=== PATIENT | female | born 1970 | race African-American/Black ===

== ENCOUNTER 2016-11-04 17:46 | Emergency (ER) | payer OTHER ==
[2016-11-04 17:52] VITALS: BP 135/89; PULSE 71; TEMP 98.1; BMI 39.5
[2016-11-04] MEDS ORDERED: KETOROLAC TROMETHAMINE 30 MG/1 ML VIAL IVPUSH ONE (18:20)
[2016-11-04] MEDS ORDERED: KETOROLAC TROMETHAMINE 30 MG/1 ML VIAL ONE (18:40)
--- NOTE | 2016-11-04 18:45 | PDOC ---
History of Present Illness - General Chief Complaint: Chest Pain Stated Complaint: CHEST PAIN Time Seen by Provider: 11/04/16 17:49 History Source: Patient Exam Limitations: No Limitations - History of Present Illness Initial Comments: 11/04/16 18:40 The patient is a 46F with a PMH of GERD, obesity, and migraines who presents with 9 hours of CP. The pain started in her L arm when she was driving and had her arm up on the window and then felt sharp pain in her L chest. This was not associated with exertion. She felt shortness of breath throughout the day secondary to what she thinks is anxiety. The pain in her chest got better throughout the day but the numbness and tingling in her L arm has progressed. She currently is only experiencing L arm pain and a burning sensation substernally. Past History - Past Medical History Allergies/Adverse Reactions: Allergies Allergy/AdvReac Type Severity Reaction Status Date / Time morphine Allergy Intermediate Itching Verified 11/04/16 17:52 Sulfa (Sulfonamide Allergy Verified 11/04/16 17:52 Antibiotics) Home Medications: Ambulatory Orders NK [No Known Home Medication] 11/04/16 Diabetes: Yes (borderline diabetes) Hypercholesterolemia: Yes Thyroid Disease: Yes (borderline thyroid function) - Immunization History Td Vaccination: No - Psycho/Social/Smoking Cessation Hx Anxiety: No Suicidal Ideation: No Smoking Status: No Smoking History: Never smoked Number of Cigarettes Smoked Daily: 0 Hx Alcohol Use: No Drug/Substance Use Hx: No Substance Use Type: None Review of Systems - Review of Systems Able to Perform ROS?: Yes Is the patient limited Welsh proficient: No Constitutional: No: Chills, Fever HEENTM: No: Blurred Vision Respiratory: No: Cough, Shortness of Breath, Wheezing Cardiac (ROS): No: Chest Pain, Irregular Heart Rate, Lightheadedness, Palpitations, Syncope, Chest Tightness ABD/GI: No: Constipated, Diarrhea, Nausea, Vomiting : No: Burning, Dysuria, Discharge Musculoskeletal: Yes: Back Pain (chronic) Neurological: Yes: Numbness, Tingling (chronic in L leg, new in L arm). No: Headache *Physical Exam - Vital Signs Last Vital Signs Temp Pulse Resp BP Pulse Ox 98.1 F 71 16 135/89 97 11/04/16 17:46 11/04/16 17:46 11/04/16 17:46 11/04/16 17:46 11/04/16 17:46 - Physical Exam General Appearance: Yes: Nourished, Appropriately Dressed, Obese. No: Apparent Distress HEENT: positive: Normal Voice, Hearing Grossly Normal Respiratory/Chest: positive: Chest Tender (on sternum and L chest), Lungs Clear , Normal Breath Sounds. negative: Accessory Muscle Use, Labored Respiration, Crackles, Rales, Rhonchi, Stridor, Wheezing Cardiovascular: positive: Regular Rhythm, Regular Rate, S1, S2. negative: Bradycardia, Tachycardia, Diastolic Murmur, Systolic Murmur Gastrointestinal/Abdominal: positive: Normal Bowel Sounds, Flat, Soft. negative : Tender, Distended, Guarding, Rebound, Tenderness Extremity: negative: Normal Range of Motion (decreased ROM in L shoulder; neurovascularly intact in L arm), Swelling, Calf Tenderness Integumentary: positive: Normal Color, Dry, Warm. negative: Clammy, Swelling, Ecchymosis Neurologic: positive: Fully Oriented, Alert, Normal Mood/Affect, Normal Response , Motor Strength 5/5. negative: Sensory Deficit Heart Score/ECG Review - ECG Intrepretation Rhythm: Regular Rhythm - Treynor Treynor: Normal - ECG Impressions Normal ECG: Yes ED Treatment Course - LABORATORY CBC & Chemistry Diagram: 11/04/16 18:20 11/04/16 18:20 - RADIOLOGY Radiology Studies Ordered: Category Date Time Status CHEST PA & LAT [RAD] Stat Radiology 11/04/16 18:20 Ordered Medical Decision Making - Medical Decision Making 11/04/16 18:46 The patient is a 46F wih a PMH of GERD, obesity, and prediabetes who presents with 10 hours of CP. I have low suspicion for cardiac related CP. I have a higher suspicion for MSK related L arm pain which radiates to her chest and/or chest wall pain. I have ordered labs and imaging and will reassess when these return. 11/04/16 19:32 Patient signed out to night team. *DC/Admit/Observation/Transfer Diagnosis at time of Disposition: Atypical chest pain - Discharge Dispostion Disposition: HOME Condition at time of disposition: Stable - Patient Instructions Printed Discharge Instructions: DI for Atypical Chest Pain Additional Instructions: Your workup at this point was negative for any cardiac causes of your chest discomfort. Your cardiogram was normal and your cardiac enzymes were negative. It is important that you follow-up with your primary care doctor and probably a head porter as well if you have continued episodes of the chest pain/ discomfort. Tylenol or Motrin as needed for pain. Return to the emergency department immediately with ANY new, persistent or worsening symptoms. Continue any medications as previously prescribed by your physician. You should follow up with your primary doctor as soon as possible regarding today's emergency department visit. . Please make sure your doctor reviews the results of your emergency evaluation. Thank you for coming to the Emergency Department today for your care. It was a pleasure to see you today. Please note that your evaluation is INCOMPLETE until you follow-up with your doctor.
[2016-11-04 18:55] LABS: BASOPHIL 1.2 % (0-2.0); EOSINOPHIL 1.4 % (0-4.5); MCH 30.6 pg (25.7-33.7); MCHC 33.9 g/dl (32.0-36.0); MEAN CELL VOLUME 90.4 fl (80-96); NEUTROPHILS 39.8 % (42.8-82.8); PLATELET COUNT 270 K/MM3 (134-434); RDW 13.1 % (11.6-15.6); WHITE BLOOD COUNT 6.3 K/mm3 (4.0-10.8)
--- NOTE | 2016-11-04 19:07 | PDOC ---
Attending Attestation - Resident Resident Name: VinnybartNapoleon - ED Attending Attestation I have performed the following: I have examined & evaluated the patient, The case was reviewed & discussed with the resident, I agree w/resident's findings & plan, Exceptions are as noted - HPI HPI: 46 y/o chest pain 11/04/16 19:03 - Physicial Exam PE: pain left shoulder 11/04/16 19:04 - Medical Decision Making low probability for cardiac event some strong family history (on mother's side ) 11/04/16 19:04 11/04/16 19:06 Lab reports pending, patient endorsed to next shift MD Dr Silveira
[2016-11-04 19:09] LABS: ALK PHOS 73 U/L (32-92); ANION GAP 4 (8-16); BILIRUBIN,TOTAL 0.3 mg/dl (0.2-1.0); CALCIUM 9.2 mg/dl (8.4-10.2); CO2 27 mmol/L (22-28); CREATININE 0.9 mg/dl (0.6-1.3); GLUCOSE,RANDOM 93 mg/dl (74-106); SGOT/AST 17 U/L (10-42); SGPT/ALT 15 U/L (10-40); TOT PROT 7.3 g/dl (6.4-8.3)
[2016-11-04] MEDS ORDERED: MAG HYDROX/AL HYDROX/SIMETH 30 ML UNIT-DOSE CUP ONE (19:34)
[2016-11-04 19:35] LABS: TROPONIN I (DFP) < 0.03 ng/ml (0.03-0.50)
[2016-11-04] MEDS ORDERED: MAG HYDROX/AL HYDROX/SIMETH 30 ML UNIT-DOSE CUP PO ONE (19:36)
[2016-11-04 19:44] LABS: CPK 204 IU/L (26-192)
--- NOTE | 2016-11-04 19:50 | PDOC ---
*Physical Exam - Vital Signs Last Vital Signs Temp Pulse Resp BP Pulse Ox 98.1 F 71 16 135/89 97 11/04/16 17:46 11/04/16 17:46 11/04/16 17:46 11/04/16 17:46 11/04/16 17:46 ED Treatment Course - LABORATORY CBC & Chemistry Diagram: 11/04/16 18:20 11/04/16 18:20 - ADDITIONAL ORDERS Additional order review: Laboratory Results 11/04/16 11/04/16 18:40 18:20 Sodium 137 Potassium 3.9 Chloride 106 Carbon Dioxide 27 Anion Gap 4 L BUN 15 D Creatinine 0.9 Creat Clearance w eGFR > 60 Random Glucose 93 Calcium 9.2 Total Bilirubin 0.3 D AST 17 ALT 15 Alkaline Phosphatase 73 Creatine Kinase 204 H Troponin I < 0.03 L Total Protein 7.3 Albumin 4.0 11/04/16 18:20 RBC 4.29 MCV 90.4 MCHC 33.9 RDW 13.1 MPV 9.0 Neutrophils % 39.8 L Lymphocytes % 46.6 H Monocytes % 11.0 H Eosinophils % 1.4 D Basophils % 1.2 - Medications Given in the ED: ED Medications Discontinued Medications Generic Name Dose Route Start Last Admin Trade Name Freq PRN Reason Stop Dose Admin Al Hydroxide/Mg Hydroxide 30 ml 11/04/16 19:36 11/04/16 19:38 Mylanta Oral Suspension - PO 11/04/16 19:37 30 ml ONCE ONE Administration Ketorolac Tromethamine 30 mg 11/04/16 18:20 11/04/16 18:43 Toradol Injection - IVPUSH 11/04/16 18:21 30 mg ONCE ONE Administration Progress Note - Progress Note Progress Note: Care of this patient was transferred to [place] from Dr. Sibley at 7 PM. Patient is a 46-year-old female who comes in with approximately 9 hours of intermittent left shoulder pain radiating to her chest but no other associated symptoms. Patient heart score is 1 and she has a normal cardiogram, negative troponin, no risk factors. Patient's risk of an acute coronary event with a negative troponin that was done more than 6 hours after the onset of her chest pain and a heart score of 1.6 in less than 1% of having an acute coronary event within the next 3 months. Patient discharged will follow-up with her septic technician and primary care doctor. *DC/Admit/Observation/Transfer Diagnosis at time of Disposition: Atypical chest pain - Discharge Dispostion Disposition: HOME Admit: No - Patient Instructions Printed Discharge Instructions: DI for Atypical Chest Pain Additional Instructions: Your workup at this point was negative for any cardiac causes of your chest discomfort. Your cardiogram was normal and your cardiac enzymes were negative. It is important that you follow-up with your primary care doctor and probably a septic technician as well if you have continued episodes of the chest pain/ discomfort. Tylenol or Motrin as needed for pain. Return to the emergency department immediately with ANY new, persistent or worsening symptoms. Continue any medications as previously prescribed by your physician. You should follow up with your primary doctor as soon as possible regarding today's emergency department visit. . Please make sure your doctor reviews the results of your emergency evaluation. Thank you for coming to the Emergency Department today for your care. It was a pleasure to see you today. Please note that your evaluation is INCOMPLETE until you follow-up with your doctor.
--- NOTE | 2016-11-05 10:25 | EKG ---
Test Reason : Blood Pressure : / mmHG Vent. Rate : 071 BPM Atrial Rate : 071 BPM P-R Int : 154 ms QRS Dur : 080 ms QT Int : 374 ms P-R-T Axes : 042 030 -04 degrees QTc Int : 406 ms NORMAL SINUS RHYTHM NONSPECIFIC ST ABNORMALITY NO PREVIOUS ECGS AVAILABLE Confirmed by REANNA GARCIA MD ([id number]) on 11/05/2016 10:25:24 AM Referred By: DR AQUINO Confirmed By:REANNA GARCIA MD
--- NOTE | 2016-11-05 15:10 | PDOC ---
Attending Attestation - Resident Resident Name: VinnybartNapoleon - ED Attending Attestation I have performed the following: I have examined & evaluated the patient, The case was reviewed & discussed with the resident, I agree w/resident's findings & plan, Exceptions are as noted - HPI HPI: Patient refered by Dr Lira who informed us that he performed surgery on this patient few days prior and she reported to him that she experienced shortness of breath and leg numbness. Patient, walked in with metal furniture assembly supervisor, reported to us similar complaints stating that her asthma medication did not help her and the incentive spirometry either. 11/05/16 15:06 - Physicial Exam PE: Patient seen immediately from arrival, minimal distress, equal breath sounds, no leg cramps nor pains at my exam 11/05/16 15:09 - Medical Decision Making Work up for potential DVT and / or PE started , received early report, negative for DVT, patient endorsed to Dr Rahman at shift change 11/05/16 15:10
== END 2016-11-04 20:07 | disposition home or self-care (01) ==
LOC: FER 17:46
PROC: 3E0333Z Introduction of Anti-inflammatory into Peripheral Vein, Percutaneous Approach (ICD-10-PCS; principal; 2016-11-04)
DX: R07.89 Other chest pain (principal); E78.00 Pure hypercholesterolemia, unspecified
CPT/HCPCS: 36415; 71020-TC; 80053; 82553; 84484; 85025; 93005; 99283-25

== ENCOUNTER 2016-12-21 11:14 | Emergency (ER) | payer OTHER ==
[2016-12-21 11:20] VITALS: TEMP 98.4; BMI 39.5
[2016-12-21] MEDS ORDERED: KETOROLAC TROMETHAMINE 10 MG TABLET PO ONE (11:50)
--- NOTE | 2016-12-21 11:50 | PDOC ---
History of Present Illness <StephenstanislawleeSarita S - Last Filed: 12/21/16 16:29> - History of Present Illness Initial Comments: 12/21/16 11:58 46F with pmh of migraines and fibroids s/p hysterectomy presents with progressive onset upon waking up of bifrontal headache radiating to the back of her head, photophobia, no auras. Decribes it as more intense then her usual migraines (which usually have auras) and similar as her first migraine episode for which she had to go to the ER. Got her BP taken at nursing and saw it was in the 150's systolic. Neurologist recommended she goes to the ED She usually takes motrin and once every few months a shot of dexamethasone by her neurologist for prophylaxis. She is worried becuase she has 2x family history of subarachnoid aneurism rupture. Complains of some nausea. Took one motrin with minimal relief. No change in vision. 12/21/16 12:55 <Francis Hewitt - Last Filed: 12/21/16 16:30> - General Chief Complaint: Headache Stated Complaint: HEADACHE Time Seen by Provider: 12/21/16 11:16 Past History <ToñitoEly S - Last Filed: 12/21/16 16:29> - Past Medical History COPD: No Diabetes: Yes (borderline diabetes) Hypercholesterolemia: Yes Thyroid Disease: Yes (borderline thyroid function) Other medical history: MIGRAINE HEADACHES - Immunization History Td Vaccination: No - Suicide/Smoking/Psychosocial Hx Smoking Status: No Smoking History: Never smoked Have you smoked in the past 12 months: No Number of Cigarettes Smoked Daily: 0 Information on smoking cessation initiated: No Hx Alcohol Use: No Drug/Substance Use Hx: No Substance Use Type: None <Francis Hewitt - Last Filed: 12/21/16 16:30> - Past Medical History Allergies/Adverse Reactions: Allergies Allergy/AdvReac Type Severity Reaction Status Date / Time morphine Allergy Intermediate Itching Verified 12/21/16 11:15 shellfish derived Allergy Verified 12/21/16 11:15 Sulfa (Sulfonamide Allergy Verified 12/21/16 11:15 Antibiotics) Home Medications: Ambulatory Orders Cholecalciferol (Vitamin D3) [Vitamin D3 -] 5,000 unit PO DAILY 12/21/16 Docosahexanoic Acid/Epa [Fish Oil Concentrate Softgel] 1 each PO DAILY 12/21/16 Review of Systems - Review of Systems Able to Perform ROS?: Yes Is the patient limited Surinamese proficient: No Constitutional: No: Symptoms Reported HEENTM: No: Blurred Vision, Double Vision Respiratory: No: Symptoms reported Cardiac (ROS): No: Symptoms Reported ABD/GI: No: Symptoms Reported : No: Symptoms Reported Musculoskeletal: No: Symptoms Reported Integumentary: No: Symptoms Reported Neurological: Yes: See HPI All Other Systems: Reviewed and Negative <Francis Hewitt - Last Filed: 12/21/16 16:30> *Physical Exam - Vital Signs Last Vital Signs Temp Pulse Resp BP Pulse Ox 98.4 F 64 18 136/77 98 12/21/16 11:15 12/21/16 14:24 12/21/16 14:24 12/21/16 14:24 12/21/16 14:24 <Sarita Sibley S - Last Filed: 12/21/16 16:29> - Vital Signs Last Vital Signs Temp Pulse Resp BP Pulse Ox 98.4 F 69 18 142/84 97 12/21/16 11:15 12/21/16 11:15 12/21/16 11:15 12/21/16 11:15 12/21/16 11:15 - Physical Exam General Appearance: Yes: Appropriately Dressed, Mild Distress, Obese HEENT: positive: EOMI, DEYVI, Normal ENT Inspection, Normal Voice Neck: positive: Trachea midline. negative: Tender Respiratory/Chest: positive: Lungs Clear, Normal Breath Sounds. negative: Chest Tender, Respiratory Distress Cardiovascular: positive: Regular Rhythm, Regular Rate, S1, S2 <Francis Hewitt - Last Filed: 12/21/16 16:30> ED Treatment Course - LABORATORY CBC & Chemistry Diagram: 12/21/16 12:00 12/21/16 12:00 - ADDITIONAL ORDERS Additional order review: Laboratory Results 12/21/16 12:00 Sodium 137 Potassium 4.5 Chloride 105 Carbon Dioxide 26 Anion Gap 6 L BUN 13 Creatinine 0.9 Creat Clearance w eGFR > 60 Random Glucose 100 Calcium 10.1 Total Bilirubin 0.8 D AST 22 D ALT 21 D Alkaline Phosphatase 74 Total Protein 7.4 Albumin 4.1 12/21/16 12:00 RBC 4.54 MCV 91.5 MCHC 33.4 RDW 13.0 MPV 9.7 Neutrophils % 37.3 L Lymphocytes % 44.7 H Monocytes % 15.5 H Eosinophils % 0.9 Basophils % 1.6 - RADIOLOGY Radiology Studies Ordered: Category Date Time Status HEAD CT WITHOUT CONTRAST [CT] Stat CT Scan 12/21/16 11:22 Completed - Medications Given in the ED: ED Medications Discontinued Medications Generic Name Dose Route Start Last Admin Trade Name Nathaniel PRN Reason Stop Dose Admin Diphenhydramine HCl 25 mg 12/21/16 12:46 12/21/16 13:00 Benadryl Injection - IVPUSH 12/21/16 12:47 25 mg ONCE ONE Administration Ondansetron HCl 4 mg 12/21/16 12:46 12/21/16 12:50 Zofran Injection IVPUSH 12/21/16 12:47 4 mg ONCE ONE Administration <Ely Sibleyus S - Last Filed: 12/21/16 16:29> - LABORATORY CBC & Chemistry Diagram: 12/21/16 12:00 12/21/16 12:00 <Francis Hewitt - Last Filed: 12/21/16 16:30> Medical Decision Making - Medical Decision Making 12/21/16 12:58 46F with history of igraines preents with 09/30 headaches. Obesity + HTN + headaches + family history of subarachnoid aneurism places moderate suspicion for subarachnoid aneurism. Ct head negative. All labs and lytes negative. This is more likely another migraine episode. Patient given toradol and zofran and Benadryl 12/21/16 13:10 12/21/16 16:30 <Francis Hewitt - Last Filed: 12/21/16 16:30> *DC/Admit/Observation/Transfer - Discharge Dispostion Admit: No <GeraRemus S - Last Filed: 12/21/16 16:29> <Francis Hewitt - Last Filed: 12/21/16 16:30> Diagnosis at time of Disposition: Migraine headache Qualifiers: Migraine type: without aura Status migrainosus presence: without status migrainosus Intractability: not intractable Qualified Code(s): G43.009 - Migraine without aura, not intractable, without status migrainosus - Discharge Dispostion Disposition: HOME Condition at time of disposition: Improved - Referrals Referrals: Marielle Huerta [Primary Care Provider] - - Patient Instructions Printed Discharge Instructions: DI for Migraine, High Blood Pressure Additional Instructions: LOW SALT DIET DISCUSS WITH YOUR DOCTOR ABOUT WEIGHT REDUCTION. RETURN TO ER IF NO IMPROVEMENT OR WORSENING OF SYMPTOMS - Post Discharge Activity Forms/Work/School Notes: Back to Work
[2016-12-21 12:26] LABS: BASOPHIL 1.6 % (0-2.0); EOSINOPHIL 0.9 % (0-4.5); MCH 30.6 pg (25.7-33.7); MCHC 33.4 g/dl (32.0-36.0); MEAN CELL VOLUME 91.5 fl (80-96); MEAN PLT VOLUME 9.7 fl (7.5-11.1); NEUTROPHILS 37.3 % (42.8-82.8); PLATELET COUNT 278 K/MM3 (134-434); WHITE BLOOD COUNT 4.5 K/mm3 (4.0-10.8)
[2016-12-21 12:34] LABS: ALBUMIN 4.1 g/dl (3.5-5.0); ALK PHOS 74 U/L (32-92); ANION GAP 6 (8-16); BILIRUBIN,TOTAL 0.8 mg/dl (0.2-1.0); CALCIUM 10.1 mg/dl (8.4-10.2); CO2 26 mmol/L (22-28); CREATININE 0.9 mg/dl (0.6-1.3); GLUCOSE,RANDOM 100 mg/dl (74-106); SGOT/AST 22 U/L (10-42); SGPT/ALT 21 U/L (10-40); TOT PROT 7.4 g/dl (6.4-8.3)
[2016-12-21] MEDS ORDERED: KETOROLAC TROMETHAMINE 15 MG/ML VIAL IM ONE (12:34)
[2016-12-21] MEDS ORDERED: diphenhydrAMINE HCL 25 MG CAPSULE (FP) PO ONE (12:34)
[2016-12-21] MEDS ORDERED: ONDANSETRON 4 MG TABLET PO ONE (12:34)
[2016-12-21] MEDS ORDERED: ONDANSETRON 4 MG/2 ML VIAL IVPUSH ONE (12:46)
[2016-12-21] MEDS ORDERED: KETOROLAC TROMETHAMINE 15 MG/ML VIAL IVPUSH PRN (12:46)
[2016-12-21] MEDS ORDERED: ONDANSETRON 4 MG/2 ML VIAL ONE (12:47)
[2016-12-21 14:24] VITALS: BP 136/77; PULSE 64
== END 2016-12-21 14:49 | disposition home or self-care (01) ==
LOC: FER 11:14
PROC: 3E033GC Introduction of Other Therapeutic Substance into Peripheral Vein, Percutaneous Approach (ICD-10-PCS; principal; 2016-12-21)
PROC: 3E0333Z Introduction of Anti-inflammatory into Peripheral Vein, Percutaneous Approach (ICD-10-PCS; 2016-12-21)
DX: G43.009 Migraine without aura, not intractable, without status migrainosus (principal); I10 Essential (primary) hypertension; E78.00 Pure hypercholesterolemia, unspecified; R73.03 Prediabetes
CPT/HCPCS: 36415; 70450-TC; 80053; 85025; 99283-25

== ENCOUNTER 2017-07-13 21:30 | Emergency (ER) | payer OTHER ==
[2017-07-13 21:44] VITALS: BP 145/68; PULSE 71; TEMP 98.3; BMI 39.5
--- NOTE | 2017-07-13 23:27 | PDOC ---
History of Present Illness - General Chief Complaint: Pain, Acute Stated Complaint: R LEG PAIN Time Seen by Provider: 07/13/17 21:32 - History of Present Illness Initial Comments: This 47-year-old woman with a history of HLD/borderline diabetes/borderline hypothyroidism presents with a several day history of right lower extremity pain and a few day history of bilateral lower leg edema/nodules. She was seen by her PMD earlier today and was referred to the emergency room to have evaluation for DVT. Patient describes the right leg pain as radiating from the lateral aspect of the proximal thigh distally to the lower leg. She denies trauma or overuse. No history of recent surgery/malignancy/prolonged travel. No history of previous DVT or family history of thromboembolic disease. Family history of MS Past History - Past Medical History Allergies/Adverse Reactions: Allergies Allergy/AdvReac Type Severity Reaction Status Date / Time morphine Allergy Intermediate Itching Verified 12/21/16 11:15 shellfish derived Allergy Verified 12/21/16 11:15 Sulfa (Sulfonamide Allergy Verified 12/21/16 11:15 Antibiotics) Home Medications: Ambulatory Orders Cholecalciferol (Vitamin D3) [Vitamin D3 -] 5,000 unit PO DAILY 12/21/16 Docosahexanoic Acid/Epa [Fish Oil Concentrate Softgel] 1 each PO DAILY 12/21/16 Eye Patch [Opticlude] 1 each OS HS #1 box 12/25/16 Methylprednisolone [Medrol Dose Daniel] 4 mg PO ASDIR #21 tablet 12/25/16 Mineral Oil/Petrolatum,White [Artificial Tears Eye Ointment] 3.5 gm OP HS #1 tube 12/25/16 Multivitamin [One Daily] 1 each PO DAILY 12/25/16 COPD: No Diabetes: Yes (borderline diabetes) Hypercholesterolemia: Yes Thyroid Disease: Yes (borderline thyroid function) - Immunization History Td Vaccination: No - Suicide/Smoking/Psychosocial Hx Smoking Status: No Smoking History: Unknown if ever smoked Have you smoked in the past 12 months: No Number of Cigarettes Smoked Daily: 0 Information on smoking cessation initiated: No Hx Alcohol Use: No Drug/Substance Use Hx: No Substance Use Type: None Review of Systems - Review of Systems Able to Perform ROS?: Yes Comments:: 12 point review of systems is negative except for what is noted in the history of present illness *Physical Exam - Vital Signs Last Vital Signs Temp Pulse Resp BP Pulse Ox 98.3 F 71 14 145/68 100 07/13/17 21:31 07/13/17 21:31 07/13/17 21:31 07/13/17 21:31 07/13/17 21:31 - Physical Exam Comments: GENERAL: Adult female, alert and oriented 3, in no acute distress HEAD: Normal with no signs of trauma. EYES: PERRLA, EOMI, sclera anicteric, conjunctiva clear. ENT: Ears normal, nares patent, oropharynx clear without exudates. Moist mucous membranes. NECK: Normal range of motion, supple without lymphadenopathy, JVD, or masses. LUNGS: Breath sounds equal, clear to auscultation bilaterally. No wheezes, and no crackles. HEART:Regular rate and rhythm, normal S1 and S2 without murmur, rub or gallop. ABDOMEN:.normal bowel sounds No guarding,tenderness or rebound.No masses No distention. EXTREMITIES: Right lower extremity-mild edema lower leg with mildly tender 2cm firm nodule posteriorly, mid calf Left lower extremityno edema lower leg with mildly tender 1.5 cm firm nodule anterior mid tibial surface Remainder of the extremity exam is normal NEUROLOGICAL: Cranial nerves II through XII grossly intact. Normal speech. No focal neurological deficits. MUSCULOSKELETAL: Back non-tender to palpation, no CVA tenderness SKIN: Warm, Dry, normal turgor, no rashes or lesions noted. Progress Note - Progress Note Progress Note: Bilateral Doppler duplex studies of the lower extremities show no evidence of DVT. Results discussed with the patient. She has an appointment with her gear machinist tomorrow. Although she has been seen by a emergency response officer in the past, this physician has subsequently retired. Since the patient has mildly tender nodules of both lower extremities as well as scattered ecchymoses of the anterior ankle areas, rheumatologic etiology of the nodules (i.e. vasculitis or rheumatoid nodules) is very possible. She will be given Dr. Sierra's referral information for follow-up within the next 5 days. Patient should return to the emergency room if she has worsening edema/pain of the lower extremities *DC/Admit/Observation/Transfer Diagnosis at time of Disposition: Subcutaneous nodules - Discharge Dispostion Disposition: HOME Condition at time of disposition: Stable - Referrals Referrals: Matty Sierra MD [Staff Physician] - - Patient Instructions Additional Instructions: No work tomorrow Elevate legs as much as possible Follow-up with your gear machinist tomorrow as scheduled Follow-up with Dr. Sierra or other emergency response officer within the next 5 days Return to ER if you have worsening pain/swelling - Post Discharge Activity Forms/Work/School Notes: Back to Work
== END 2017-07-14 01:28 | disposition home or self-care (01) ==
LOC: FER 21:30
DX: R22.9 Localized swelling, mass and lump, unspecified (principal); R73.03 Prediabetes; E78.00 Pure hypercholesterolemia, unspecified
CPT/HCPCS: 93970-TC; 99282-25

== ENCOUNTER 2019-01-30 13:37 | Emergency (ER) | payer OTHER ==
[2019-01-30 13:41] VITALS: BP 144/73; PULSE 74; TEMP 98; BMI 40.7
--- NOTE | 2019-01-30 14:27 | PDOC ---
History of Present Illness - General Chief Complaint: Pain, Acute Stated Complaint: RIGHT ARM PAIN Time Seen by Provider: 01/30/19 13:40 - History of Present Illness Initial Comments: 01/30/19 14:27 48-year-old female with a history of hypertension presents emergency department with 6 weeks of pain to her proximal medial right forearm. Patient denies any preceding trauma. Initially, she thought the pain was due to leaning her forearm on the car when she drives, however she stopped leaning her arm and the pain persisted. She reports over the last week the pain has felt like burning. She reports that the pain is worse when she pushes down on the remote control with her thumb. She reports most movements with her thumb can trigger the pain in her proximal forearm. She denies any numbness or weakness to the arm. She has not tried any treatments. She has not seen a physician for the symptoms. She presents today to the emergency department requesting a test for carpal tunnel. Denies any history of similar symptoms. Reports surgery to her right rotator cuff many years ago, but no surgery to her elbow, forearm, or hand. She denies fevers, chills, chest pain, shortness of breath, abdominal pain, headaches, dizziness, neck pain, focal weakness or numbness, lower extremity edema. Past History - Past Medical History Allergies/Adverse Reactions: Allergies Allergy/AdvReac Type Severity Reaction Status Date / Time morphine Allergy Intermediate Itching Verified 01/30/19 13:38 shellfish derived Allergy Verified 01/30/19 13:38 Sulfa (Sulfonamide Allergy Verified 01/30/19 13:38 Antibiotics) Home Medications: Ambulatory Orders Amlodipine Besylate [Norvasc -] 2.5 mg PO DAILY 01/30/19 COPD: No Diabetes: Yes (borderline diabetes) Hypercholesterolemia: Yes Thyroid Disease: Yes (borderline thyroid function) - Immunization History Td Vaccination: No - Psycho Social/Smoking Cessation Hx Smoking Status: No Smoking History: Never smoked Have you smoked in the past 12 months: No Number of Cigarettes Smoked Daily: 0 Hx Alcohol Use: No Drug/Substance Use Hx: No Substance Use Type: None Review of Systems - Review of Systems Comments:: 01/30/19 14:42 GENERAL/CONSTITUTIONAL: No fever or chills. No weakness. HEAD, EYES, EARS, NOSE AND THROAT: No change in vision. No ear pain or discharge. No sore throat. GASTROINTESTINAL: No nausea, vomiting, diarrhea or constipation. GENITOURINARY: No dysuria, frequency, or change in urination. CARDIOVASCULAR: No chest pain or shortness of breath. RESPIRATORY: No cough, wheezing, or hemoptysis. MUSCULOSKELETAL: +R forearm pain. No neck or back pain. SKIN: No rash NEUROLOGIC: No headache, vertigo, loss of consciousness, or change in strength/ sensation. ENDOCRINE: No increased thirst. No abnormal weight change. HEMATOLOGIC/LYMPHATIC: No anemia, easy bleeding, or history of blood clots. ALLERGIC/IMMUNOLOGIC: No hives or skin allergy. *Physical Exam - Vital Signs Last Vital Signs Temp Pulse Resp BP Pulse Ox 98.0 F 74 17 144/73 100 01/30/19 13:38 01/30/19 13:38 01/30/19 13:38 01/30/19 13:38 01/30/19 13:38 - Physical Exam 01/30/19 14:43 GENERAL: Awake, alert, and fully oriented, in no acute distress. Well appearing. EYES: PERRLA, EOMI, sclera anicteric, conjunctiva clear ENT: Auricles normal inspection, hearing grossly normal, nares patent, oropharynx clear without exudates. Moist mucosa NECK: Normal ROM, supple, no lymphadenopathy, JVD, or masses LUNGS: Breath sounds equal, clear to auscultation bilaterally. No wheezes, and no crackles HEART: Regular rate and rhythm, normal S1 and S2, no murmurs, rubs or gallops ABDOMEN: Soft, nontender, normoactive bowel sounds. No guarding, no rebound. No masses EXTREMITIES: +pinpoint ttp to flexor carpi ulnaris muscle about 6cm distal to elbow. No masses palpated, no lesions. Pain in this location triggered with flexion, extension, adduction of R thumb. Normal strength and sensation to entire RUE. Able to actively flex, extend, abduct, adduct all fingers, able to flex and extend at wrist and elbow. Normal resistance with thumbs up, okay sign. No other ttp. 2+ radial pulse. WWP. NEUROLOGICAL: Normal speech, cranial nerves intact, equal strength and sensation b/l SKIN: Warm, Dry, normal turgor, no rashes or lesions noted. Medical Decision Making - Medical Decision Making 01/30/19 14:47 48-year-old female presents to the emergency department with atraumatic right proximal medial forearm pain. On exam, with some tenderness palpation over the ulnaris muscle. Possible overuse injury, may be residual from leaning her forearm in her car. Patient is notably neurovascularly intact in the entire right upper extremity, with normal strength and sensation and 2+ peripheral pulses. Patient has been referred to hand orthopedic physician for further evaluation. She was offered an x-ray to rule out any bony injury, she denies adamantly any trauma and declines the x-ray. She is clinically stable for discharge home with outpatient orthopedics follow-up. She declines pain medications in the emergency department. I discussed the physical exam findings, ancillary test results and final diagnoses with the patient. I answered all of the patient's questions. The patient was satisfied with the care received and felt comfortable with the discharge plan and treatment plan. The patient will call their primary care physician within 24 hours to arrange follow-up and will return to the Emergency Department with any new, persistent or worsening symptoms. Discharge - Discharge Information Problems reviewed: Yes Clinical Impression/Diagnosis: Right arm pain, Arm paresthesia, right, Thumb pain Condition: Stable Disposition: HOME - Admission No - Follow up/Referral Referrals: Mynor Samuels MD [Staff Physician] - - Patient Discharge Instructions Patient Printed Discharge Instructions: DI for Arm Pain Additional Instructions: You presented to the emergency department with 6 weeks of right arm pain, made worse with movements of your thumb. Your neurovascular exam in the emergency department was normal. We will refer you to see the orthopedic doctor. Call today to make an appointment within 1-2 weeks for further evaluation. You may take ibuprofen for pain as needed. Follow the instructions on the label. Return to the emergency department if you have any new, worsening, or concerning symptoms. - Post Discharge Activity
== END 2019-01-30 14:29 | disposition home or self-care (01) ==
LOC: FER 13:37
DX: M79.631 Pain in right forearm (principal); M79.644 Pain in right finger(s); M79.601 Pain in right arm; E07.9 Disorder of thyroid, unspecified; R73.03 Prediabetes; Z88.6 Allergy status to analgesic agent; Z91.013 Allergy to seafood; Z88.2 Allergy status to sulfonamides; E78.00 Pure hypercholesterolemia, unspecified; I10 Essential (primary) hypertension
CPT/HCPCS: 99281-25